=== PATIENT | female | born 1980 | race African-American/Black ===

== ENCOUNTER 2019-03-02 15:53 | Emergency (ER) | payer OTHER ==
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
[2019-03-02] MEDS ORDERED: KETOROLAC TROMETHAMINE INJ/PF 30 MG/1 ML SDV IM ONE (18:42)
[2019-03-02] MEDS ORDERED: ACETAMINOPHEN 325 MG TABLET PO ONE (18:42)
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
[2019-03-02] MEDS ORDERED: HYDROCODONE/ACETAMINOPHEN 5-325 MG (6 TAB/ER DISP) PO PRN (19:35)
[2019-03-02 19:57] VITALS: BP 166/107
== END 2019-03-02 19:57 | disposition home or self-care (01) ==
LOC: ER 15:53 → EDBD 15:53 → ER 19:57
DX: M25.562 Pain in left knee (principal); M79.605 Pain in left leg; V49.50XA Passenger injured in collision with unspecified motor vehicles in traffic accident, initial encounter; F17.200 Nicotine dependence, unspecified, uncomplicated
CPT/HCPCS: 99283; 96372; 73552; 73564; J1885